=== PATIENT | male | born 1990 | race African-American/Black ===

== ENCOUNTER 2017-01-06 19:46 | Emergency (ER) | payer OTHER ==
[~2017-01-06] VITALS: Ht 175.3 cm; Wt 63.5 kg
[2017-01-06] MEDS ORDERED: NOHOMEMEDICATIONS (19:58)
[2017-01-06 20:56] LABS: HEMATOCRIT 44.5 % (42.0-52.0); MANUAL DIFF YES; MCH 31.1 pg (26.0-34.0); MCHC 33.8 g/dL (28.0-37.0); MCV 91.8 fL (80.0-100.0); PLATELET COUNT 207 thou/uL (150-400); RBC 4.84 mil/uL (4.50-6.00); RDW 13.6 % (10.5-14.5); WBC 11.2 thou/uL (4.0-11.0)
[2017-01-06 21:02] LABS: CALCIUM 10.4 mg/dL (8.5-10.1); POTASSIUM 4.4 mmol/L (3.5-5.1)
[2017-01-06 21:08] LABS: ALBUMIN 4.7 g/dL (3.4-5.0); TOTAL PROTEIN 8.3 g/dL (6.4-8.2)
[2017-01-06 21:19] LABS: ABSOLUTE NEUTROPHILS 9.6 thou/uL (1.4-8.2); TOTAL CELL COUNT 100
[2017-01-06 21:20] LABS: ANISOCYTOSIS 1+; POLYCHROMASIA OCCASIONAL
[2017-01-06 21:50] LABS: URINE BILIRUBIN 1+ (Negative); URINE BLOOD NEGATIVE (Negative); URINE COLOR YELLOW; URINE GLUCOSE-RANDOM* NEGATIVE (Negative); URINE KETONES 3+ (Negative); URINE NITRITE NEGATIVE (Negative); URINE PROTEIN (DIPSTICK) 1+ (Negative)
[2017-01-06 21:55] LABS: ICTOTEST (BILI CONFIRMATORY) Negative (Negative)
[2017-01-06 22:02] LABS: AMP/METHAMP Negative (Negative); BARBITURATES Negative (Negative); BENZODIAZEPINES Negative (Negative); COCAINE Negative (Negative); METHADONE Negative (Negative); OPIATES Negative (Negative); PCP Negative (Negative); THC POSITIVE (Negative)
[2017-01-06] MEDS ORDERED: ONDANSETRON HCL4 M2 PO (22:06)
[2017-01-06 22:09] LABS: CASTS None Seen /LPF (None Seen); CRYSTALS None Seen /LPF (None Seen); URINE WBC 0-5 Rare /HPF (0-5)
[2017-01-06 22:10] LABS: BACTERIA 1-9 Few /HPF (None Seen); SQUAMOUS 0-3 Few /LPF (0-3); URINE RBC 3-10 Few /HPF (0-2)
[2017-01-06 22:30] VITALS: BP 101/44
== END 2017-01-06 22:30 | disposition home or self-care (01) ==
LOC: ER 19:46
PROVIDERS: Nurse Practitioner Family
DX: R19.7 Diarrhea, unspecified (principal); R11.2 Nausea with vomiting, unspecified; Z98.890 Other specified postprocedural states

== ENCOUNTER 2018-07-26 15:07 | Emergency (ER) | payer OTHER ==
[~2018-07-26] VITALS: Ht 175.3 cm; Wt 59.0 kg
[~2018-07-26 15:07] MED LIST: FLONASE 0.05%50 MCG NASAL; MUCINEX1200 MG PO; NOHOMEMEDICATIONS; ONDANSETRON HCL4 M2 PO; TESSALON PERLE100 MG PO
[2018-07-26] MEDS ORDERED: CEPACOL SORE T1 EAC7 BUCCAL (15:34)
[2018-07-26 16:12] VITALS: BP 116/68
== END 2018-07-26 15:40 | disposition home or self-care (01) ==
LOC: ER 15:07
DX: J02.0 Streptococcal pharyngitis (principal); F17.210 Nicotine dependence, cigarettes, uncomplicated

== ENCOUNTER 2018-08-23 15:54 | Emergency (ER) | payer OTHER ==
[~2018-08-23] VITALS: Ht 172.7 cm; Wt 54.4 kg
[~2018-08-23 15:54] MED LIST changes: +CEPACOL SORE T1 EAC7 BUCCAL
[2018-08-23] MEDS ORDERED: PENICILLIN V P500 MG PO (17:02)
[2018-08-23] MEDS ORDERED: MOBIC7.5 MG PO (17:02)
[2018-08-23] MEDS ORDERED: ULTRAM 50MG TAB50 MG PO (17:02)
[2018-08-23 17:17] VITALS: BP 117/91
== END 2018-08-23 17:17 | disposition home or self-care (01) ==
LOC: ER 15:54
DX: K04.7 Periapical abscess without sinus (principal); F17.210 Nicotine dependence, cigarettes, uncomplicated

== ENCOUNTER 2019-04-13 02:14 | Emergency (ER) | payer OTHER ==
[~2019-04-13] VITALS: Ht 175.3 cm; Wt 54.4 kg
[~2019-04-13 02:14] MED LIST changes: +MOBIC7.5 MG PO; +PENICILLIN V P500 MG PO; +ULTRAM 50MG TAB50 MG PO
[2019-04-13 02:16] VITALS: BP 112/67
[2019-04-13 02:53] LABS: ABSOLUTE NEUTROPHILS 6.9 thou/uL (1.4-8.2); BASOPHILS 0.3 % (0.0-2.0); HEMATOCRIT 42.9 % (42.0-52.0); HEMOGLOBIN 14.4 gm/dL (14.0-18.0); MCH 30.7 pg (26.0-34.0); MCHC 33.6 g/dL (28.0-37.0); MCV 91.5 fL (80.0-100.0); MONOCYTES 5.1 % (1.0-8.0); PLATELET COUNT 215 thou/uL (150-400); POLYS 87.6 % (36.0-66.0); RBC 4.69 mil/uL (4.50-6.00); RDW 13.6 % (10.5-14.5); WBC 7.8 thou/uL (4.0-11.0)
[2019-04-13 03:01] LABS: CALCIUM 9.4 mg/dL (8.5-10.1); CREATININE 1.2 mg/dL (0.7-1.3); POTASSIUM 3.7 mmol/L (3.5-5.1)
[2019-04-13 03:07] LABS: ALBUMIN 4.6 g/dL (3.4-5.0); TOTAL BILIRUBIN 0.8 mg/dL (<0.1-1.0)
[2019-04-13] MEDS ORDERED: ZOFRAN4 MG PO (03:11)
== END 2019-04-13 03:24 | disposition home or self-care (01) ==
LOC: ER 02:14
PROVIDERS: Student in an Organized Health Care Education/Training Program
DX: R11.2 Nausea with vomiting, unspecified (principal); R10.9 Unspecified abdominal pain; F17.210 Nicotine dependence, cigarettes, uncomplicated

== ENCOUNTER 2019-08-04 16:15 | Emergency (ER) | payer OTHER ==
[~2019-08-04] VITALS: Ht 175.3 cm; Wt 54.4 kg
[~2019-08-04 16:15] MED LIST changes: +ZOFRAN4 MG PO
[2019-08-04] MEDS ORDERED: IBUPROFEN 600600 M1 PO (17:29)
[2019-08-04] MEDS ORDERED: TRAMADOL 50 MG50 MG PO (17:29)
[2019-08-04] MEDS ORDERED: AMOXICILLIN 50500 MG PO (17:29)
[2019-08-04 17:54] VITALS: BP 135/79
== END 2019-08-04 17:54 | disposition home or self-care (01) ==
LOC: ER 16:15
DX: K04.7 Periapical abscess without sinus (principal); F17.210 Nicotine dependence, cigarettes, uncomplicated

== ENCOUNTER 2020-03-02 11:10 | Emergency (ER) | payer OTHER ==
[~2020-03-02] VITALS: Ht 175.3 cm; Wt 54.4 kg
[~2020-03-02 11:10] MED LIST changes: +AMOXICILLIN 50500 MG PO; +IBUPROFEN 600600 M1 PO; +TRAMADOL 50 MG50 MG PO
[2020-03-02] MEDS ORDERED: IBUPROFEN 600600 M1 PO (14:24)
[2020-03-02] MEDS ORDERED: FLEXERIL PO (14:24)
[2020-03-02 14:25] VITALS: BP 105/58
== END 2020-03-02 14:25 | disposition home or self-care (01) ==
LOC: ER 11:10
DX: S13.4XXA Sprain of ligaments of cervical spine, initial encounter (principal); S29.012A Strain of muscle and tendon of back wall of thorax, initial encounter; S39.012A Strain of muscle, fascia and tendon of lower back, initial encounter; R10.9 Unspecified abdominal pain; R51.9 Headache, unspecified; F17.210 Nicotine dependence, cigarettes, uncomplicated; Z98.890 Other specified postprocedural states; V89.2XXA Person injured in unspecified motor-vehicle accident, traffic, initial encounter; Y93.89 Activity, other specified; Y92.488 Other paved roadways as the place of occurrence of the external cause; Y99.8 Other external cause status